=== PATIENT | male | born 1995 | race Caucasian/White ===

== ENCOUNTER 2016-07-28 11:45 | Emergency (ER) | payer BC ==
[2016-07-28 13:00] VITALS: BP 125/79
--- NOTE | 2016-07-28 13:06 | UC ---
Throat Pain/Nasal Ryan HPI - HPI Summary HPI Summary: sore throat fever cough, fatigued, 1-2 soft stools daily urinating usual amount - History of Current Complaint Chief Complaint: UCGeneralIllness Stated Complaint: COUGH,FEVER,NO APPETITE,WEIGHT LOSS Time Seen by Provider: 07/28/16 12:58 Hx Obtained From: Patient Onset/Duration: Sudden Onset, Lasting Weeks - 4, Still Present Severity: Moderate Pain Intensity: 5 Pain Scale Used: 0-10 Numeric Cough: Nonproductive Associated Signs & Symptoms: Positive: Fever - Allergies/Home Medications Allergies/Adverse Reactions: Allergies Allergy/AdvReac Type Severity Reaction Status Date / Time No Known Allergies Allergy Verified 07/28/16 13:00 Home Medications: Home Medications Omeprazole CAP* [Prilosec CAP* 20 MG] 20 mg PO DAILY 07/28/16 [History Confirmed 07/28/16] PMH/Surg Hx/FS Hx/Imm Hx Previously Healthy: Yes - Surgical History Surgical History: Yes Surgery Procedure, Year, and Place: wisdom teeth - Family History Known Family History: Positive: None Family History: no illness exposure no cardio vascular issues in family lineage - Social History Occupation: Employed Full-time Lives: With Family Alcohol Use: Occasionally Substance Use Type: None Smoking Status (MU): Never Smoked Tobacco Review of Systems Constitutional: Fever, Chills, Fatigue Skin: Negative Eyes: Negative ENT: Sore Throat Respiratory: Cough Cardiovascular: Negative Gastrointestinal: Diarrhea - 1-2 soft stools daily Genitourinary: Negative Motor: Negative Neurovascular: Negative Musculoskeletal: Negative Neurological: Negative Psychological: Negative All Other Systems Reviewed And Are Negative: Yes Physical Exam Triage Information Reviewed: Yes Appearance: No Pain Distress, Well-Nourished, Ill-Appearing - mild Vital Signs: Initial Vital Signs Temp 99.0 F 07/28/16 12:57 Pulse 103 07/28/16 12:57 Resp 16 07/28/16 12:57 BP 125/79 07/28/16 12:57 Pulse Ox 98 07/28/16 12:57 Vital Signs Reviewed: Yes Eye Exam: Normal Eyes: Positive: Conjunctiva Clear ENT Exam: Normal ENT: Positive: Normal ENT inspection, Hearing grossly normal, Pharynx normal, TMs normal, Tonsillar swelling, Tonsillar exudate. Negative: Nasal congestion, Nasal drainage, Trismus, Muffled/hoarse voice Dental Exam: Normal Neck exam: Normal Neck: Positive: Supple, Nontender, Enlarged Nodes @ - anterior cervical Respiratory Exam: Normal Respiratory: Positive: Chest non-tender, Lungs clear, Normal breath sounds, No respiratory distress, No accessory muscle use Cardiovascular Exam: Normal Cardiovascular: Positive: No Murmur, Pulses Normal, Brisk Capillary Refill, Tachycardia Abdominal Exam: Normal Abdomen Description: Positive: No Organomegaly, Soft, Other: - general discomfort. Negative: CVA Tenderness (R), CVA Tenderness (L), Distended, Hepatomegaly, McBurney's Point Tenderness, Peritoneal Signs, Splenomegaly Bowel Sounds: Positive: Present Musculoskeletal Exam: Normal Musculoskeletal: Positive: Strength Intact, ROM Intact, No Edema Neurological Exam: Normal Neurological: Positive: Alert, Muscle Tone Normal, Fatigued Psychological Exam: Normal Skin Exam: Normal Diagnostics - Laboratory Diagnostic Studies Completed/Ordered: Strep (-), Ua + ketone, protient bili, uro bili Throat Pain/Nasal Course/Dx - Course Assessment/Plan: CBC, Gaines, Increase fluids, follow with pcp re-check prn - Differential Dx/Diagnosis Differential Diagnosis/HQI/PQRI: Influenza, Laryngitis, Mononucleosis, Pharyngitis, Sinusitis, URI Provider Diagnoses: Viral Illness Discharge - Discharge Plan Condition: Stable Disposition: HOME Patient Education Materials: Mononucleosis (ED), Viral Syndrome (ED) Referrals: Cornel Pacheco MD [Primary Care Provider] - 3 Days
[2016-07-29 13:32] LABS: Hematocrit 42 % (42-52); Hemoglobin 13.2 g/dl (14.0-18.0); Mean Corpuscular HGB Conc 32 g/dl (31-36); Mean Corpuscular Hemoglobin 24 pg (27-31); Mean Corpuscular Volume 76 fL (80-94); Mean Platelet Volume 10 um3 (7.4-10.4); Red Blood Count 5.43 10^6/ul (4.0-5.4); Red Cell Distribution Width 18 % (10.5-15); White Blood Count 14.9 10^3/ul (3.5-10.8)
[2016-07-29 13:33] LABS: Add Diff/Slide Review? Manual Diff Added; Comments Flag Yes; Manual Entry Verification HAN0055
[2016-07-29 13:35] LABS: Mono Internal Control QC Line Present
[2016-07-29 14:19] LABS: Eosinophils % 2 % (0-6); Immature Granulocytes 5 % (0-9); Neutrophil % 14 % (38-83); Reactive Lymph % 31 % (0-6)
[2016-07-29 14:20] LABS: Burr Cells 1+; Hypochromasia 2+; Microcytosis 2+
--- NOTE | 2016-07-29 16:34 | UC ---
Progress - Progress Note Progress Note: wbc count is 14.7 and monospot is positive. Follow the instructions from Isis Richardson yesterday. Do not participate in any contact sports until you are cleared by Dr. Walker or urgent care because mono can cause your spleen to enlarge and it can rupture if you participate in contact sports. Saunders can last for a week to several weeks. Have definite follow up with Dr. Walker and see your doctor or return to urgent care if you have any new or worsening symptoms.
== END 2016-07-28 14:05 | disposition home or self-care (01) ==
LOC: UCCORT 11:45
DX: J02.9 Acute pharyngitis, unspecified (principal); R50.9 Fever, unspecified; R05 Cough; B34.9 Viral infection, unspecified
CPT/HCPCS: 36415; 81003; 85025; 85060; 86308; 87651; 99201; G0463